=== PATIENT | female | born 1985 | race Caucasian/White ===

== ENCOUNTER 2019-10-13 14:34 | Emergency (ER) | payer OTHER ==
[~2019-10-13] VITALS: Ht 167.6 cm; Wt 55.9 kg
[2019-10-13 14:36] VITALS: BP 117/79
== END 2019-10-13 16:42 | disposition left against medical advice (07) ==
LOC: EMS 14:39
DX: M54.6 Pain in thoracic spine (principal); Z53.21 Procedure and treatment not carried out due to patient leaving prior to being seen by health care provider